=== PATIENT | male | born 1955 ===

== ENCOUNTER 2017-03-14 16:15 | Emergency (ER) | payer OTHER ==
--- NOTE | 2017-03-14 16:41 | ED GENERAL ADULT ---
History of Present Illness General Chief Complaint: General Adult Stated Complaint: BIBA FOR LETHARGY Source: family, old records, EMS Exam Limitations: clinical condition Vital Signs & Intake/Output Vital Signs & Intake/Output Vital Signs Date Time Temp Pulse Resp B/P B/P Pulse O2 O2 Flow FiO2 Mean Ox Delivery Rate 03/14 1827 96.4 80 18 132/78 94 Room Air 03/14 1619 99.1 90 18 117/65 92 Room Air Room Air Allergies Coded Allergies: No Known Allergies (03/14/17) Reconcile Medications Acetaminophen (Pain Relief) 325 MG TABLET 2 TAB PO Q4H PRN PAIN/TEMP>100 ( Reported) Acetaminophen (Acephen) 650 MG SUPP.RECT 1 SUPP AL Q4H PRN PAIN/TEMP>100 ( Reported) Bisacodyl 10 MG SUPP.RECT 1 SUP RC PRN CONSTIPATION (Reported) Cholecalciferol (Vitamin D3) (Vitamin D) 2,000 UNIT CAPSULE 1 CAP PO DAILY SUPPLEMENT (Reported) Dextrose 5 %-0.45 % NaCl (Dextrose 5%-0.45% NaCl IV Soln) 5 %-0.45 % IV.SOLN 80 ML IV Q1 IV (Reported) Lactose-Reduced Food (Nutritional Shake) (Unknown Strength) LIQUID (Unknown Dose) PO AD NECTAR THICK W/MED PASS (Reported) Magnesium Hydroxide (Milk Of Magnesia) 400 MG/5 ML ORAL.SUSP 30 ML PO DAILY PRN CONSTIPATION (Reported) Na Phos,M-B/Na Phos,Di-Ba (Fleet Enema) 19 GRAM-7 GRAM/118 ML ENEMA 1 E RC DAILY PRN CONSTIPATION (Reported) Nicotine (Nicotine Patch) 21 MG/24 HOUR PATCH.TD24 1 PAT TOP DAILY SMOKING CESSATION (Reported) Nitrofurantoin Monohyd/M-Cryst (Macrobid 100 MG Capsule) 100 MG CAPSULE 1 CAP PO BID uti with food Nystatin 100,000 UNIT/ML ORAL.SUSP 5 ML PO 4 TIMES/DAY ANTIFUNGAL (Reported) Oxybutynin Chloride 5 MG TABLET 1 TAB PO DAILY BLADDER (Reported) Phenytoin (Dilantin) 30 MG CAPSULE 1 CAP PO DAILY UNKNOWN (Reported) Phenytoin Sodium Extended 300 MG CAPSULE 300 MG PO DAILY UNKNOWN (Reported) Triage Note: PT BIBA FROM [facility] FOR BEING "UNRESPONSIVE" FOR 8 HOURS TODAY. EMS STATES ABOUT 1 HOUR [facility] MANAGER THEIR ARRIVAL HE AWOKE WITH NO COMPLAINTS. PT IS TO BE EVALUATED FOR THIS 8 HOURS OF BEING UNRESPOSIVE. PT ARRIVES WITH NO COMPLAINTS. PT HAS MS AND IS AT BASELINE NONVERBAL, HE IS ABLE TO ANSWER QUESTIONS APPROPRIATELY WITH SHAKING HIS HEAD. Triage Nurses Notes Reviewed? yes Onset: Gradual Duration: day(s): (1) Timing: recent history Injury Environment: home Severity: moderate Modifying Factors: Improves With: other (iv fluids). HPI: Patient is a 61-year-old male with history of multiple sclerosis, presenting to the emergency department from [facility] with chief complaint of lethargy worsening over the past 24 hours. Per patient's family patient was recently transported from [facility] to [place] to be admitted that he went nursing facility. He was admitted last night and noted that he had increased lethargy this morning. They gave him IV fluids to see if he would awaken, symptoms did not improve so they sent him into the emergency room for evaluation. jail denies any fevers. No changes with medications. (KADEN RON) Past History Travel History Traveled to [place] past 21 day No Medical History Any Pertinent Medical History? see below for history Neurological: multiple sclerosis Surgical History Surgical History: non-contributory Family History Hx Contributory? No (KADEN RON) Review of Systems Review of Systems Constitutional: Reports: malaise, weakness. Comments Review of systems: See HPI, All other systems negative. Constitutional, no chills fever or weight loss HEENT: No visual changes no sore throat Cardiovascular: No orthopnea or ankle swelling Skin, no jaundice no rashes Respiratory: No dyspnea sputum or hemoptysis GI: No nausea no vomiting : No dysuria No hematuria Muscle skeletal: no back pain, no neck pain, Neurologic: episodes of unresponsiveness Psych: recent stress of flying on plane Heme/endocrine: No bruising no bleeding no polyuria or polydipsia Immunology: No splenectomy or history of AIDS (KADEN RON) Physical Exam Physical Exam General Appearance: no apparent distress, comfortable Comments: Well-developed well-nourished person in no acute distress HEENT: extraocular motion intact, no nystagmus. Pupils equally round and reactive to light and accommodation. Nose is atraumatic. External auditory canal and Tympanic membranes clear. Pharynx normal. No swelling or edema. Slightly dry oral mucosa. Neck: Normal duction Cardiovascular: Regular rate and rhythms no murmurs rubs or gallops, normal JVP Respiratory: Chest nontender. No respiratory distress.breath sounds clear to auscultation bilaterally Abdomen: Soft, nontender nondistended, no appreciable organomegaly. Normal bowel sounds. No ascites, no rebound or guarding. Extremity: No edema, no calf tenderness to palpation, normal and equal pulses. Slightly contracted upper extremities, poor muscle tone in upper and lower extremities. Neuro: Alert oriented to person and place, non-verbal, communicates with nodding. Skin: No appreciable rash on exposed skin, skin is warm and dry. Psych: Mood and affect is normal per family Core Measures ACS in differential dx? Yes CVA/TIA Diagnosis: No Severe Sepsis Present: No Septic Shock Present: No (JAQUI PLAZA,KADEN) Progress Differential Diagnoses I considered the following diagnoses in my evaluation of the patient: Electrolyte abnormality, pulmonary and less, pneumonia, bronchitis, dehydration, ACS, UTI Plan of Care: Orders Procedure Date/time Status BLOOD CULTURE 03/14 1804 Active Add-on Test (ER Only) 03/14 1727 Active EKG 03/14 1727 Active TROPONIN LEVEL 03/14 1659 Complete Straight Cath 03/14 1641 Active CULTURE,URINE 03/14 1641 Active URINALYSIS 03/14 1641 Complete LACTIC ACID 03/14 1640 Complete D-DIMER 03/14 1640 Complete COMPREHENSIVE METABOLIC PANEL 03/14 1640 Complete CBC WITHOUT DIFFERENTIAL 03/14 1640 Complete Current Medications Sig/Gildardo Start time Last Medication Dose Stop Time Status Admin Sodium Chloride 1,000 ML BOLUS ONE 03/14 1800 AC (Normal Saline 0.9%) 03/14 195 Laboratory Tests 03/14/17 1940: Lactic Acid Cancelled 03/14/17 1713: Urine Color YEL, Urine Clarity HAZY H, Urine pH 6.0, Ur Specific [place] >= 1.030, Urine Protein NEG, Urine Ketones TRACE H, Urine Nitrite NEG, Urine Bilirubin NEG, Urine Urobilinogen 1.0, Ur Leukocyte Esterase SMALL H, Ur Microscopic SEDIMENT EXAMINED, Urine RBC RARE, Urine WBC 15-25 H, Ur Epithelial Cells FEW, Urine Bacteria PACKD H, Urine Mucus RARE, Urine Hemoglobin TRACE- INTACT H, Urine Glucose NEG 03/14/17 1659: Anion Gap 11, Estimated GFR > 60, BUN/Creatinine Ratio 31.4 H, Glucose 91, Lactic Acid 0.7, Calcium 8.8, Total Bilirubin 0.7, AST 90 H, ALT 86 H, Alkaline Phosphatase 171 H, Troponin I < 0.01, Total Protein 6.3, Albumin 3.3 L, Globulin 3.0, Albumin/Globulin Ratio 1.1, D-Dimer High Sensitivty 616 H, CBC w Diff NO MAN DIFF REQ, RBC 4.81, MCV 89.2, MCH 30.1, RDW 13.7, MPV 7.9, Gran % 71.8, Lymphocytes % 18.3 L, Monocytes % 7.3, Eosinophils % 2.2, Basophils % 0.4 , Absolute Granulocytes 7.6 H, Absolute Lymphocytes 1.9, Absolute Monocytes 0.8 H, Absolute Eosinophils 0.2, Absolute Basophils 0, PUBS MCHC 33.7 Microbiology 03/14 1804 BLOOD: Blood Culture - ORD 03/14 1804 BLOOD: Blood Culture - ORD 03/14 171 URINE ROUT: Urine Culture - RECD Diagnostic Imaging: Viewed by Me: Radiology Read. Discussed w/RAD: Radiology Read. Radiology Impression: PATIENT: JORGE ALBERTO PALACIO PRESENT AGE: 61 PATIENT ACCOUNT NO: [id number] : 59 LOCATION: [facility] ORDERING PHYSICIAN: KADEN PLAZA SERVICE DATE: 03/14/17 EXAM TYPE: CAT - CTA CHEST-PULMONARY EMBOLISM EXAMINATION: CT ANGIOGRAM OF THE CHEST WITH AND WITHOUT CONTRAST (CT PULMONARY ANGIOGRAM FOR PE) CLINICAL INFORMATION: 61-year-old male patient with shortness of breath and fatigue. Hypoxia. Recent air travel. COMPARISON: None TECHNIQUE: Prior to contrast administration, noncontrast localization images were obtained. Subsequently, multidetector volumetric imaging was performed from the thoracic inlet to below the diaphragms following the administration of 95 mL Optiray 350 intravenous contrast. No contrast reaction reported. Sagittal, coronal, and MIP oblique sagittal reformatted images were obtained on the CT workstation, uploaded to PACS, and reviewed. Total exam dose-length product 382 mGy-cm. The patient could not elevate his arms for the exam resulting in some beam hardening artifacts on the images. FINDINGS: QUALITY OF STUDY/CONTRAST BOLUS: Satisfactory PULMONARY ARTERIES: No central or segmental pulmonary emboli. THORACIC AORTA: No aneurysm or dissection. LUNG: There is dependent atelectasis of the posterior aspects of both lower lobes. Emphysematous alterations affect both upper lobes. There is no area of consolidation or edema. There are large apical blebs on the right. PLEURA: No pleural effusion or pneumothorax. MEDIASTINUM: The heart is normal in size. There is no sign of pericardial effusion. No evidence of septal bowing or right heart strain. Small reactive lymph nodes are present in both hilar regions. Secretions are pooling in the trachea. CHEST WALL/AXILLA: No axillary or internal mammary lymphadenopathy. OSSEOUS STRUCTURES: No acute or suspicious osseous abnormality. UPPER ABDOMEN: Unremarkable. No reflux of contrast into the hepatic veins to suggest elevated right heart pressures. IMPRESSION: 1. No evidence of acute pulmonary embolism. 2. Emphysema. 3. Mild dependent atelectasis of the lower lobes. VTE: Negative. DICTATED BY: PEPE HUGGINS MD DATE/TIME DICTATED:03/14/171916 CXR Impression: PATIENT: JORGE ALBERTO PALACIO PRESENT AGE: 61 PATIENT ACCOUNT NO: [id number] : 59 LOCATION: [facility] ORDERING PHYSICIAN: KADEN PLAZA SERVICE DATE: 03/14/17 EXAM TYPE: RAD - XRY- PORTABLE CHEST XRAY EXAMINATION: XR PORTABLE CHEST CLINICAL INFORMATION: Cough. G and low oxygen saturation. COMPARISON: None. TECHNIQUE: Portable frontal view of the chest was obtained. FINDINGS: The lungs are mildly hyperinflated, without focal airspace consolidation. No pleural effusions or pneumothoraces are identified. Cardiomediastinal contours are within normal limits. Soft tissues are unremarkable. No acute osseous abnormality is identified. IMPRESSION: Mild pulmonary hyperinflation. No acute pulmonary process. DICTATED BY: ARGENIS SONG MD DATE/TIME DICTATED:03/14/171715 FUNERAL DIRECTOR:SUNI DATE/TIME TRANSCRIBED:03/14/171715 CONFIDENTIAL, DO NOT COPY WITHOUT APPROPRIATE AUTHORIZATION. <Electronically signed in Other Vendor System> SIGNED BY: ARGENIS SONG MD 03/14/171724 Initial ED EKG: sinus rhythm at 83 bpm (KADEN RON) Departure Departure Time of Disposition: 1932 Disposition: HOME OR SELF CARE Condition: Stable Clinical Impression Primary Impression: Urinary tract infection Qualifiers: Urinary tract infection type: site unspecified Hematuria presence: with hematuria Qualified Codes: N39.0 - Urinary tract infection, site not specified; R31.9 - Hematuria, unspecified Referrals: ELSY SCHULTE MD (PCP/Family) Additional Instructions: Follow-up with the primary care physician call to make appointment. Urine cultures are pending. Departure Forms: Customer Survey General Discharge Information Prescriptions: Current Visit Scripts Nitrofurantoin Monohyd/M-Cryst (Macrobid 100 MG Capsule) 1 CAP PO BID #14 CAP with food (KADEN RON) PA/ARMAMENT INSTALLER Co-Sign Statement Statement: ED Attending supervision documentation- [X] I saw and evaluated the patient. I have also reviewed all the pertinent lab results and diagnostic results. I agree with the findings and the plan of care as documented in the PA's/ARMAMENT INSTALLER's documentation. [X] I have reviewed the ED Record and agree with the PA's/ARMAMENT INSTALLER's documentation. [] Additions or exceptions (if any) to the PAs/ARMAMENT INSTALLER's note and plan are summarized below: [] (DIANE YOUNG,ARNOLDO Brunner) Critical Care Note Critical Care Note Critical Care Time: non-applicable (KADEN RON)
--- NOTE | 2017-03-14 17:25 | RADIOLOGY REPORT ---
EXAMINATION: XR PORTABLE CHEST CLINICAL INFORMATION: Cough. G and low oxygen saturation. COMPARISON: None. TECHNIQUE: Portable frontal view of the chest was obtained. FINDINGS: The lungs are mildly hyperinflated, without focal airspace consolidation. No pleural effusions or pneumothoraces are identified. Cardiomediastinal contours are within normal limits. Soft tissues are unremarkable. No acute osseous abnormality is identified. IMPRESSION: Mild pulmonary hyperinflation. No acute pulmonary process.
[2017-03-14 17:26] LABS: ABSOLUTE BASOPHIL COUNT 0 /CUMM (0.0-0.2); ABSOLUTE EOSINOPHIL COUNT 0.2 /CUMM (0.0-0.7); ABSOLUTE GRANULOCYTE CT 7.6 /CUMM (1.4-6.5); ABSOLUTE LYMPH COUNT 1.9 /CUMM (1.2-3.4); ABSOLUTE MONOCYTE COUNT 0.8 /CUMM (0.10-0.60); BASOPHIL % 0.4 % (0.0-2.0); EOSINOPHIL % 2.2 % (0-5); GRANULOCYTE % 71.8 % (42.2-75.2); HEMATOCRIT 42.9 % (42-52); MEAN CORPUSCULAR HGB 30.1 PG (27.0-31.0); MEAN CORPUSCULAR HGB CONC 33.7 G/DL (33.0-37.0); MEAN CORPUSCULAR VOLUME 89.2 FL (80.0-94.0); MEAN PLATELET VOLUME 7.9 FL (7.4-10.4); PLATELET COUNT 431 /CUMM (130-400); RBC DISTRIBUTION WIDTH 13.7 % (11.5-14.5); RED BLOOD CELL CT 4.81 /CUMM (4.70-6.10); WHITE BLOOD CELL COUNT 10.6 /CUMM (4.8-10.8)
[2017-03-14] MEDS ORDERED: [UNRECOGNIZED DRUG - CODE] IV (17:53)
[2017-03-14] MEDS ORDERED: NUTRITIONAL SH PO (17:54)
[2017-03-14] MEDS ORDERED: NYSTATIN100000 UNI PO (17:55)
[2017-03-14] MEDS ORDERED: PHENYTOIN SODI300 MG PO (17:57)
[2017-03-14] MEDS ORDERED: OXYBUTYNIN CHLOR5 M2 PO (17:57)
[2017-03-14] MEDS ORDERED: NICOTINE PATCH1 EAC3 TOP (17:59)
[2017-03-14] MEDS ORDERED: VITAMIN D2000 UNIT PO (17:59)
[2017-03-14] MEDS ORDERED: DILANTIN30 MG PO (18:09)
[2017-03-14] MEDS ORDERED: MILK OF MA400 MG/52 PO (18:18)
[2017-03-14] MEDS ORDERED: BISACODYL10 M1 RC (18:22)
[2017-03-14] MEDS ORDERED: FLEET ENEMA133 ML RC (18:23)
[2017-03-14] MEDS ORDERED: PAIN RELIEF325 MG PO (18:24)
[2017-03-14] MEDS ORDERED: ACEPHEN650 M1 PR (18:25)
--- NOTE | 2017-03-14 19:30 | CT SCAN REPORT ---
EXAMINATION: CT ANGIOGRAM OF THE CHEST WITH AND WITHOUT CONTRAST (CT PULMONARY ANGIOGRAM FOR PE) CLINICAL INFORMATION: 61-year-old male patient with shortness of breath and fatigue. Hypoxia. Recent air travel. COMPARISON: None TECHNIQUE: Prior to contrast administration, noncontrast localization images were obtained. Subsequently, multidetector volumetric imaging was performed from the thoracic inlet to below the diaphragms following the administration of 95 mL Optiray 350 intravenous contrast. No contrast reaction reported. Sagittal, coronal, and MIP oblique sagittal reformatted images were obtained on the CT workstation, uploaded to PACS, and reviewed. Total exam dose-length product 382 mGy-cm. The patient could not elevate his arms for the exam resulting in some beam hardening artifacts on the images. FINDINGS: QUALITY OF STUDY/CONTRAST BOLUS: Satisfactory PULMONARY ARTERIES: No central or segmental pulmonary emboli. THORACIC AORTA: No aneurysm or dissection. LUNG: There is dependent atelectasis of the posterior aspects of both lower lobes. Emphysematous alterations affect both upper lobes. There is no area of consolidation or edema. There are large apical blebs on the right. PLEURA: No pleural effusion or pneumothorax. MEDIASTINUM: The heart is normal in size. There is no sign of pericardial effusion. No evidence of septal bowing or right heart strain. Small reactive lymph nodes are present in both hilar regions. Secretions are pooling in the trachea. CHEST WALL/AXILLA: No axillary or internal mammary lymphadenopathy. OSSEOUS STRUCTURES: No acute or suspicious osseous abnormality. UPPER ABDOMEN: Unremarkable. No reflux of contrast into the hepatic veins to suggest elevated right heart pressures. IMPRESSION: 1. No evidence of acute pulmonary embolism. 2. Emphysema. 3. Mild dependent atelectasis of the lower lobes. VTE: Negative.
[2017-03-14] MEDS ORDERED: MACROBID 100 M100 MG PO (19:42)
== END 2017-03-14 21:13 ==
LOC: ERH 16:15
PROVIDERS: Physician Assistant
DX: N39.0 Urinary tract infection, site not specified (principal)
CPT/HCPCS: 81001; 87040; 87086; 93005; 93010; 96374; J0696